=== PATIENT | female | born 1975 | race Caucasian/White ===

== ENCOUNTER 2017-09-21 12:50 | Emergency (ER) | payer SELFPAY ==
[2017-09-21] MEDS: IBUPROFEN 600 MG TAB PO (14:02)
[2017-09-21] MEDS: HYDROCODONE/APAP (5/325) TAB PO (14:03)
== END 2017-09-21 15:48 | disposition home or self-care (01) ==
LOC: FTE 12:50
DX: S52.124A Nondisplaced fracture of head of right radius, initial encounter for closed fracture (principal); V49.40XA Driver injured in collision with unspecified motor vehicles in traffic accident, initial encounter
CPT/HCPCS: 29125; 72040; 73080-RT; 73090-RT; 73110-RT; 99284-25